=== PATIENT | female | born 1995 | race American Indian/Alaskan Native ===

== ENCOUNTER 2019-02-20 09:52 | Emergency (ER) | payer SELFPAY ==
[2019-02-20] MEDS ORDERED: IBUPROFEN 800 MG TAB PO ONE (10:58)
[2019-02-20] MEDS ORDERED: IBUPROFEN 800 MG TAB ONE (11:02)
[2019-02-20 11:06] LABS: Bacteria,Urine 1+ /HPF (Negative); Bilirubin,Urine NEG (Negative); Blood,Urine SM (Negative); Color,Urine Yellow (Yellow); Mucus,Urine 3+ /HPF; Protein,Urine <15 mg/dL mg/dL (Negative); Urobilinogen,Urine < 2.0 mg/dL (<2.0)
[2019-02-20 11:07] LABS: HCG Qualitative,Urine Negative (Negative)
--- NOTE | 2019-02-20 11:31 | Emergency Department Report ---
ED Abdominal Pain HPI - General Chief Complaint: Abdominal Pain Stated Complaint: ABD PAIN Time Seen by Provider: 02/20/19 10:26 Source: patient, EMS Mode of arrival: Ambulatory Limitations: No Limitations - History of Present Illness MD Complaint: abdominal pain -: week(s) (1) Location: epigastric Radiation: none Migration to: no migration Severity: moderate Severity scale (0 -10): 8 Quality: aching, sharp Consistency: constant Improves With: nothing Worsens With: other (pain with sexual intercourse. worsened last night ) Associated Symptoms: denies: nausea, vomiting, diarrhea, hematemesis, hematuria, anorexia, syncope, other (vag discharge) - Related Data Allergies Allergy/AdvReac Type Severity Reaction Status Date / Time shrimp Allergy Hives Verified 02/20/19 09:57 ED Review of Systems ROS: Stated complaint: ABD PAIN Other details as noted in HPI Comment: All other systems reviewed and negative ED Past Medical Hx - Past Medical History Previous Medical History?: Yes Hx Psychiatric Treatment: (DEPRESSION, ADHD) - Surgical History Past Surgical History?: Yes Additional Surgical History: RT LEG SURGERY - Social History Smoking Status: Current Every Day Smoker Substance Use Type: Alcohol ED Physical Exam - General Limitations: No Limitations General appearance: alert, in no apparent distress - Head Head exam: Present: atraumatic, normocephalic - Eye Eye exam: Present: normal appearance - ENT ENT exam: Present: mucous membranes moist - Neck Neck exam: Present: normal inspection - Respiratory Respiratory exam: Present: normal lung sounds bilaterally. Absent: respiratory distress - Cardiovascular Cardiovascular Exam: Present: regular rate, normal rhythm. Absent: systolic murmur, diastolic murmur, rubs, gallop - GI/Abdominal GI/Abdominal exam: Present: soft, tenderness (superpubic), normal bowel sounds. Absent: distended, guarding, rebound, rigid - Extremities Exam Extremities exam: Present: normal inspection - Back Exam Back exam: Present: normal inspection - Neurological Exam Neurological exam: Present: alert, oriented X3 - Psychiatric Psychiatric exam: Present: normal affect, normal mood - Skin Skin exam: Present: warm, dry, intact, normal color. Absent: rash ED Course Vital Signs 02/20/19 02/20/19 10:07 11:02 Temperature 97.8 F Pulse Rate 88 Respiratory 18 19 Rate Blood Pressure 102/75 O2 Sat by Pulse 96 Oximetry ED Medical Decision Making - Lab Data Labs 02/20/19 10:38 Urine Color Yellow Urine Turbidity Slightly-cloudy Urine pH 5.0 Ur Specific [place] 1.024 Urine Protein <15 mg/dl Urine Glucose (UA) Neg Urine Ketones 20 Urine Blood Sm Urine Nitrite Neg Urine Bilirubin Neg Urine Urobilinogen < 2.0 Ur Leukocyte Esterase Lg Urine WBC (Auto) 7.0 H Urine RBC (Auto) 5.0 U Epithel Cells (Auto) 19.0 H Urine Bacteria (Auto) 1+ Urine Mucus 3+ Urine HCG, Qual Negative - Medical Decision Making Patient is presenting with suprapubic pain. Pain is worse after sexual intercourse last night with been present for approximately a week. Patient has no dysuria or does have some urinary frequency on further questioning. Patient's urinalysis has positive leuk esterase the patient be started on antibiotics and discharged home. Critical care attestation.: If time is entered above; I have spent that time in minutes in the direct care of this critically ill patient, excluding procedure time. ED Disposition Clinical Impression: Acute cystitis Qualifiers: Hematuria presence: without hematuria Qualified Code(s): N30.00 - Acute cystitis without hematuria Disposition: - TO HOME OR SELFCARE Is pt being admited?: No Does the pt Need Aspirin: No Condition: Stable Instructions: Urinary Tract Infection in Women (ED) Referrals: ZACHARIAH CHEATHAM MD [Referring] - 3-5 Days Time of Disposition: 11:33
[2019-02-20 12:13] VITALS: BP 104/80
== END 2019-02-20 11:48 | disposition home or self-care (01) ==
LOC: ED 09:52
DX: N30.00 Acute cystitis without hematuria (principal); F32.9 Major depressive disorder, single episode, unspecified; F90.9 Attention-deficit hyperactivity disorder, unspecified type; F17.200 Nicotine dependence, unspecified, uncomplicated; Z98.890 Other specified postprocedural states; Z91.013 Allergy to seafood
CPT/HCPCS: 81001; 81025